=== PATIENT | female | born 1955 | race Caucasian/White ===

== ENCOUNTER → 2025-08-20 | Outpatient (CLI) | payer MEDICARE, BC ==
[2025-08-21 12:35] LABS: Stool Occult Bld Immuno 1 Negative (NEGATIVE)
== END ==
LOC: LAB SHORT 07:25 → LAB 07:25
PROVIDERS: Family Medicine
DX: Z12.11 Encounter for screening for malignant neoplasm of colon (principal); Z12.12 Encounter for screening for malignant neoplasm of rectum
CPT/HCPCS: G0328